=== PATIENT | female | born 1930 | race Caucasian/White ===

== ENCOUNTER 2017-03-10 14:13 | Emergency (ER) | payer MEDICARE, OTHER, MEDICAID ==
--- NOTE | 2017-03-17 11:01 | ER ---
ADMIT: 03/10/2017 RM/LOC: ER [facility] MR#: [id number] [address] [id number] [place] [address] Emergency Room Report SEX: F AGE: 86 : 1930 DATE: 03/10/2017 BRIEF ADDENDUM: CHIEF COMPLAINT: Increasing hernia size. HISTORY OF PRESENT ILLNESS: This is a pleasantly confused 86-year-old female who comes to the emergency department from [facility] with staff concerns of increasing size of her abdominal hernia and some off and on pain about the hernia for the last 2 days. History and exam are limited secondary to the patient's underlying dementia. She states she does recall some off and on pain in the right lower quadrant. However, she states she has otherwise felt well. Denies any fevers, chills, nausea, or vomiting. Reports having a normal bowel movement last night. She does take medications to help with some constipation. I did visit with the daughter who states the patient does appear to be at baseline, has no concerns for any change in mental status. COURSE IN THE EMERGENCY ROOM: The patient was seen and examined. She does have multiple abdominal hernias, one periumbilical, otherwise 2 others of moderate size in the lower abdomen. They are not red, they are not painful to touch. They are soft. I did get some labs on her. CBC within normal limits showing white count 8.7, hemoglobin 14.1, hematocrit 42.1, and platelets 236. CMP shows sodium 140, potassium 3.6, chloride 104, CO2 of 26, glucose 145, and creatinine 0.7. Liver enzymes within normal limits. UA was not obtained. Lactic acid shows 1.5. IMPRESSION: 1. Abdominal hernia, non strangulated. 2. Right lower quadrant abdominal pain. DISPOSITION: I did speak with the patient and daughter at bedside. Told them findings of exam today are non concerning for incarcerated or strangulated hernia. She is to continue her home medications. Return with any worsening signs or symptoms. To follow up with Dr. Barnett. She can use Tylenol as needed for pain. Otherwise follow up with Dr. Barnett as needed. She was discharged from department in stable condition. CAROL Villalta / Donte Alva MD / gregg JOB #: [id number] CC: Donte Alva MD, Attending Physician Pancho Barnett MD, Family Physician
== END 2017-03-10 17:00 | disposition home or self-care (01) ==
LOC: ER 14:13
DX: K46.9 Unspecified abdominal hernia without obstruction or gangrene (principal); E11.9 Type 2 diabetes mellitus without complications; I10 Essential (primary) hypertension; Z88.5 Allergy status to narcotic agent; Z90.49 Acquired absence of other specified parts of digestive tract